=== PATIENT | female | born 1990 | race Caucasian/White ===

== ENCOUNTER 2018-11-29 16:07 | Outpatient (CLI) | payer MEDICAID ==
[2018-11-29 18:08] LABS: ADD UMIC YES; UR ASCORBIC ACID NEGATIVE (NEGATIVE); UR BACTERIA FEW /HPF (NONE SEEN); UR BILIRUBIN (Dip) NEGATIVE (NEGATIVE); UR BLOOD (Dip) NEGATIVE (NEGATIVE); UR CLARITY SLIGHTLY CLOUDY (CLEAR); UR COLOR YELLOW (YELLOW); UR GLUCOSE (Dip) NEGATIVE (NEGATIVE); UR KETONES (Dip) NEGATIVE (NEGATIVE); UR LEUKOCYTE ESTERASE (Dip) 2+ Leu/ul (NEGATIVE); UR NITRITE (Dip) NEGATIVE (NEGATIVE); UR RBC 0 /HPF (0-5); UR SQUAMOUS EPITHELIAL CELL FEW /HPF (FEW); UR TOTAL PROTEIN (Dip) NEGATIVE (NEGATIVE); UR UROBILINOGEN (Dip) NEGATIVE (NEGATIVE); UR WBC 8 /HPF (0-5)
== END 2018-11-29 20:25 | disposition home or self-care (01) ==
LOC: OBT 16:07 → L-D 16:07 → OBT 20:25
DX: O36.8330 Maternal care for abnormalities of the fetal heart rate or rhythm, third trimester, not applicable or unspecified (principal); Z3A.36 36 weeks gestation of pregnancy
CPT/HCPCS: 76818; 81001; 87086

== ENCOUNTER 2018-12-18 08:23 | Outpatient (CLI) | payer MEDICAID | END 2018-12-18 10:30 | disposition home or self-care (01) | LOC: OBT 08:23 → L-D 08:23 → OBT 10:30 | DX: O62.9 Abnormality of forces of labor, unspecified (principal); Z3A.39 39 weeks gestation of pregnancy | CPT/HCPCS: 76818 ==